=== PATIENT | male | born 1950 | race Caucasian/White ===

== ENCOUNTER 2020-02-18 19:20 | Emergency (ER) | payer MEDICARE, MEDICAID ==
[2020-02-18] MEDS ORDERED: methylPREDNISolone Sodium Succinate 125 MG/2 ML SDV IVPUSH STA (19:28)
[2020-02-18] MEDS ORDERED: Albuterol/Ipratropium 3.0-0.5 MG/3 ML Neb Soln NEB ONE (19:28)
[2020-02-18] MEDS ORDERED: Aspirin 81 MG Tab.Chew PO ONE ×2 (19:28→20:23)
--- NOTE | 2020-02-18 19:39 | EDM.PDOC ---
ED HPI GENERAL MEDICAL PROBLEM - General Chief Complaint: Chest Pain Stated Complaint: chest pain Time Seen by Provider: 02/18/20 19:25 Source of Information: Reports: Patient History Limitations: Reports: No Limitations - History of Present Illness INITIAL COMMENTS - FREE TEXT/NARRATIVE: This patient is a 69 year old male that presents to the ER. Patient reports that at 4am this morning he was awakened by being short of breath with "dancing " in his chest. Patient reports that he has had this before, he usually takes a breathing treatment and it helps. He reports he has been doing his breathing treatments at home and not helped. He reports he has been short of breath with this dancing since 4am. Patient reports that for the past few days he has also had some more congestion in nose and chest more than usual. Patient reports that his cough has been productive. He does report having nausea and vomiting x4 today. The patient is conversing in full and complete sentences. Onset: Today Onset Date: 02/18/20 Onset Time: 04:00 Duration: Constant Location: Reports: Chest Severity: Moderate Improves with: Reports: Rest Worsens with: Reports: Breathing, Movement Associated Symptoms: Reports: Chest Pain, Cough, cough w sputum, Nausea/Vomiting , Shortness of Breath, Weakness (general). Denies: Confusion, Diaphoresis, Fever/Chills, Headaches, Loss of Appetite, Malaise, Rash, Seizure, Syncope Chest Pain Score (Numeric/FACES): 9 - Related Data Allergies Allergy/AdvReac Type Severity Reaction Status Date / Time ibuprofen Allergy Cannot Verified 02/18/20 19:27 [From DayQuil Sinus Remember Pressure/Pain] pseudoephedrine HCl Allergy Cannot Verified 02/18/20 19:27 [From DayQuil Sinus Remember Pressure/Pain] Home Meds: Home Meds Albuterol/Ipratropium [DuoNeb 3.0-0.5 MG/3 ML] 1 ampule NEB QID 02/18/20 [ History] Budesonide [Pulmicort] 0.5 mg INH BID 02/18/20 [History] Cyclobenzaprine [Flexeril] 10 mg PO BEDTIME 02/18/20 [History] Gabapentin [Neurontin] 300 mg PO TID 02/18/20 [History] Roflumilast [Daliresp] 500 mcg PO BEDTIME 02/18/20 [History] ED ROS GENERAL - Review of Systems Review Of Systems: See Below Constitutional: Reports: No Symptoms, Weakness (generally), Decreased Appetite. Denies: Fever HEENT: Reports: Rhinitis, Sinus Problem Respiratory: Reports: Shortness of Breath, Pleuritic Chest Pain, Cough, Sputum Cardiovascular: Reports: Chest Pain, Dyspnea on Exertion. Denies: Edema, Lightheadedness, Palpitations, Syncope Endocrine: Reports: No Symptoms GI/Abdominal: Reports: Nausea, Vomiting. Denies: Abdominal Pain, Diarrhea : Reports: No Symptoms Musculoskeletal: Reports: No Symptoms Skin: Reports: No Symptoms Neurological: Reports: No Symptoms Psychiatric: Reports: No Symptoms Hematologic/Lymphatic: Reports: No Symptoms Immunologic: Reports: No Symptoms ED EXAM, GENERAL - Physical Exam Exam: See Below Exam Limited By: No Limitations General Appearance: Alert, WD/WN, No Apparent Distress Eye Exam: Bilateral Eye: Normal Inspection, PERRL Ears: Normal External Exam, Normal Canal, Hearing Grossly Normal, Normal TMs Ear Exam: Bilateral Ear: Auricle Normal, Canal Normal, TM normal Nose: Normal Inspection, Normal Mucosa, No Blood Throat/Mouth: Normal Inspection, Normal Lips, Normal Teeth, Normal Gums, Normal Oropharynx, Normal Voice, No Airway Compromise Head: Atraumatic, Normocephalic Neck: Normal Inspection, Supple, Non-Tender, Full Range of Motion Respiratory/Chest: No Respiratory Distress, No Accessory Muscle Use, Chest Non- Tender, Decreased Breath Sounds (moderate throughout), Rhonchi, Wheezing Cardiovascular: Normal Peripheral Pulses, Regular Rate, Rhythm, No Edema, No JVD Peripheral Pulses: 2+: Radial (L), Radial (R), Posterior Tibial (L), Posterior Tibial (R), Dorsalis Pedis (L), Dorsalis Pedis (R) GI/Abdominal: Normal Bowel Sounds, Soft, Non-Tender, No Organomegaly, No Distention, Pelvis Stable Back Exam: Normal Inspection, Full Range of Motion Extremities: Normal Inspection, Normal Range of Motion, Non-Tender, No Pedal Edema, Normal Capillary Refill Neurological: Alert, Oriented, Normal Cognition, Normal Gait, No Motor/Sensory Deficits Psychiatric: Normal Affect, Normal Mood Skin Exam: Warm, Dry, Intact, Normal Color, No Rash Lymphatic: No Adenopathy EKG INTERPRETATION EKG Date: 02/18/20 Time: 19:30 Rhythm: NSR Rate (Beats/Min): 86 ST-T: Normal Comparison: NA - No Prior EKG Course - Vital Signs Last Recorded V/S: Last Vital Signs Temp 96.3 F L 02/18/20 21:12 Pulse 103 H 02/18/20 21:12 Resp 16 02/18/20 21:12 BP 114/78 02/18/20 21:12 Pulse Ox 94 L 02/18/20 21:12 - Orders/Labs/Meds Orders: Active Orders 24 hr Category Date Time Status Oxygen Therapy, ED [RC] ASDIRECTED Care 02/18/20 21:09 Active RT Aerosol Therapy [RC] ASDIRECTED Care 02/18/20 19:29 Active Vital Signs [RC] Q1H Care 02/18/20 20:12 Active CXR [Chest 2V] [CR] Stat Exams 02/18/20 19:29 Taken CULTURE BLOOD [BC] Stat Lab 02/18/20 19:40 Received CULTURE BLOOD [BC] Stat Lab 02/18/20 19:45 Received Heparin Sodium/D5W [Heparin 25,000 Units in D5W 500 ML] Med 02/18/20 21:15 Active 25,000 units in 500 ml IV TITRATE Nitroglycerin/D5W [Nitroglycerin 25 MG/D5W 250 ML] Med 02/18/20 21:15 Active 25 mg in 250 ml IV TITRATE Blood Culture x2 Reflex Set [OM.PC] Stat Oth 02/18/20 19:36 Ordered Medication Orders Nitroglycerin/Dextrose (Nitroglycerin 25 Mg/D5w 250 Ml) 25 mg in 250 mls @ 6 mls/hr IV TITRATE MISHA; Protocol Last Admin: 02/18/20 21:25 Dose: 10 mcg/min, 6 mls/hr Heparin Sodium/Dextrose (Heparin 25,000 Units In D5w 500 Ml) 25,000 units in 500 mls @ 14.969 mls/hr IV TITRATE MISHA; Protocol Last Admin: 02/18/20 21:38 Dose: 15 units/kg/hr, 14.969 mls/hr Labs: Laboratory Tests 02/18/20 02/18/20 02/18/20 Range/Units 19:40 19:40 19:40 WBC 11.5 H (5.0-10.0) 10^3/uL RBC 4.72 (4.50-6.00) 10^6/uL Hgb 14.8 (14.0-18.0) g/dL Hct 41.6 (40.0-54.0) % MCV 88.1 (82.0-94.0) fL MCH 31.4 (27.0-32.0) pg MCHC 35.6 (33.0-38.0) g/dL RDW Coeff of Griselda 14.9 (11.0-15.0) % Plt Count 360 (150-400) 10^3/uL Neut % (Auto) 87.3 H (35-85) % Lymph % (Auto) 6.5 L (10-55) % [place] % (Auto) 5.7 (0-16) % Eos % (Auto) 0.2 (0-5) % Baso % (Auto) 0.3 (0-3) % Neut # (Auto) 10.07 H (1.80-7.00) 10^3/uL Lymph # (Auto) 0.75 L (1.00-4.80) 10^3/uL [place] # (Auto) 0.66 (0.00-0.80) 10^3/uL Eos # (Auto) 0.02 (0.00-0.45) 10^3/uL Baso # (Auto) 0.03 10^3/uL PT (9.7-12.3) SEC INR (0.92-1.18) APTT (23.2-32.3) SEC Sodium 138 (136-145) mEq/L Potassium 4.1 (3.5-5.0) mEq/L Chloride 99 (98-106) mEq/L Carbon Dioxide 26 (21-32) mmol/L BUN 19 H (7-18) mg/dL Creatinine 1.2 (0.7-1.3) mg/dL Est Cr Clr Drug Dosing 39.85 mL/min Estimated GFR (MDRD) 60 (>=60) mL/min Glucose 125 H D (75-99) mg/dL Lactic Acid 2.1 H (0.4-2.0) mmol/L Calcium 9.7 (8.4-10.1) mg/dL Total Bilirubin 0.7 (0.0-1.0) mg/dL AST 30 (15-37) U/L ALT 27 (12-78) U/L Alkaline Phosphatase 100 (46-116) U/L Lactate Dehydrogenase 156 (100-190) U/L Creatine Kinase 170 (35-232) U/L Troponin I 2.820 H* (0.00-0.06) ng/mL NT-Pro-B Natriuret Pep 1200 H (0-1000) pg/mL Total Protein 8.5 H (6.4-8.2) g/dL Albumin 3.9 (3.4-5.0) g/dL Lipase 48 L (73-393) U/L SARS-CoV-2 RNA (RT-PCR) (NEGATIVE) 02/18/20 02/18/20 Range/Units 19:45 20:12 WBC (5.0-10.0) 10^3/uL RBC (4.50-6.00) 10^6/uL Hgb (14.0-18.0) g/dL Hct (40.0-54.0) % MCV (82.0-94.0) fL MCH (27.0-32.0) pg MCHC (33.0-38.0) g/dL RDW Coeff of Griselda (11.0-15.0) % Plt Count (150-400) 10^3/uL Neut % (Auto) (35-85) % Lymph % (Auto) (10-55) % [place] % (Auto) (0-16) % Eos % (Auto) (0-5) % Baso % (Auto) (0-3) % Neut # (Auto) (1.80-7.00) 10^3/uL Lymph # (Auto) (1.00-4.80) 10^3/uL [place] # (Auto) (0.00-0.80) 10^3/uL Eos # (Auto) (0.00-0.45) 10^3/uL Baso # (Auto) 10^3/uL PT 9.4 L (9.7-12.3) SEC INR 0.93 (0.92-1.18) APTT 25.7 (23.2-32.3) SEC Sodium (136-145) mEq/L Potassium (3.5-5.0) mEq/L Chloride (98-106) mEq/L Carbon Dioxide (21-32) mmol/L BUN (7-18) mg/dL Creatinine (0.7-1.3) mg/dL Est Cr Clr Drug Dosing mL/min Estimated GFR (MDRD) (>=60) mL/min Glucose (75-99) mg/dL Lactic Acid (0.4-2.0) mmol/L Calcium (8.4-10.1) mg/dL Total Bilirubin (0.0-1.0) mg/dL AST (15-37) U/L ALT (12-78) U/L Alkaline Phosphatase (46-116) U/L Lactate Dehydrogenase (100-190) U/L Creatine Kinase (35-232) U/L Troponin I (0.00-0.06) ng/mL NT-Pro-B Natriuret Pep (0-1000) pg/mL Total Protein (6.4-8.2) g/dL Albumin (3.4-5.0) g/dL Lipase (73-393) U/L SARS-CoV-2 RNA (RT-PCR) Negative (NEGATIVE) Meds: Medications Generic Name Dose Route Start Last Admin Trade Name Freq PRN Reason Stop Dose Admin Nitroglycerin/Dextrose 25 mg in 250 mls @ 6 mls/hr 02/18/20 21:15 02/18/20 21 :25 Nitroglycerin 25 Mg/D5w 250 Ml IV 10 mcg/min TITRATE MISHA 6 mls/hr Administration Protocol 10 MCG/MIN Heparin Sodium/Dextrose 25,000 units in 500 mls @ 14.969 mls/hr 02/18/20 21: 15 02/18/20 21:38 Heparin 25,000 Units In D5w 500 Ml IV 15 units/kg/hr TITRATE MISHA 14.969 mls/hr Administration Protocol 15 UNITS/KG/HR Discontinued Medications Generic Name Dose Route Start Last Admin Trade Name Freq PRN Reason Stop Dose Admin Albuterol/Ipratropium 3 ml 02/18/20 19:28 02/18/20 19:45 Duoneb 3.0-0.5 Mg/3 Ml NEB 02/18/20 19:29 3 ml ONETIME ONE Administration Aspirin 324 mg 02/18/20 19:28 02/18/20 19:30 Aspirin PO 02/18/20 19:29 Not Given ONETIME ONE Aspirin 324 mg 02/18/20 20:23 02/18/20 20:32 Aspirin PO 02/18/20 20:24 324 mg ONETIME ONE Administration Heparin Sodium (Porcine) 3,000 units 02/18/20 21:35 02/18/20 21:37 Heparin Sodium IVPUSH 02/18/20 21:36 3,000 units .BOLUS ONE Administration Heparin Sodium (Porcine) Confirm 02/18/20 21:17 02/18/20 21:36 Heparin Sodium Administered 02/18/20 21:18 Not Given Dose 10,000 units .ROUTE .STK-MED ONE Methylprednisolone Sodium Succinate 125 mg 02/18/20 19:28 02/18/20 19:52 Solu-Medrol IVPUSH 02/18/20 19:29 125 mg NOW STA Administration Morphine Sulfate 4 mg 02/18/20 20:24 02/18/20 20:30 Morphine IVPUSH 02/18/20 20:25 4 mg NOW STA Administration Nitroglycerin 0.4 mg 02/18/20 20:46 02/18/20 21:03 Nitrostat SL 0.4 mg Q5M PRN Administration Chest Pain Ondansetron HCl 4 mg 02/18/20 20:02 02/18/20 20:09 Zofran IVPUSH 02/18/20 20:03 4 mg NOW STA Administration - Radiology Interpretation Free Text/Narrative:: CXR: marked pulmonary hyperinflation which is unchanged from previous. no lobar consolidation is seen. heart, mediastinum and vessels unremarkable. - Re-Assessments/Exams Free Text/Narrative Re-Assessment/Exam: 02/18/202016 Called from lab about patient elevated troponin, going to talk to patient about transfer. Patient requested [facility] Transfer. 02/18/20 20:29 Called [facility] for transfer. Spoke to Dr. Baltazar in ER, also with Dr. Stinson wind turbine blade repair technician. Dr. Wagner says to come to ER, give Nitro as well, and Heparin if no contraindications. Flight was paged. 02/18/20 20:50 I spoke to the patient about heparin. He reports that he has had history of bleeding in his bowels several years ago, from diverticulitis and constipation. Spoe to [facility] physician about this. She reports to give the Heparin, Nitro gtt , and no ST elevation on EKG. Discussed the risk vs benefits with the patient about medications and transfer. He has agreed to treatment and transfer. Patient pain level after morphine was 8/10. After nitro was 5/10. 02/18/20 21:20 I have attempted to call daughter x4 to talk to her about her father, but no answer. RN walked outside to see if she was outside hospital, no one there. 02/18/20 21:43 Departure - Departure Time of Disposition: 21:14 Disposition: DC/Tfer to Acute Hospital 02 Condition: Serious Clinical Impression: Acute coronary syndrome, Non-STEMI (non-ST elevated myocardial infarction) - Discharge Information *PRESCRIPTION DRUG MONITORING PROGRAM REVIEWED*: Not Applicable *COPY OF PRESCRIPTION DRUG MONITORING REPORT IN PATIENT VIVIANA: Not Applicable Referrals: PCP,Unknown [Primary Care Provider] - Forms: ED Department Discharge Sepsis Event Note (ED) - Focused Exam Vital Signs: Vital Signs Temp Pulse Pulse Resp BP BP Pulse Ox 02/18/20 21:12 96.3 F L 103 H 16 114/78 94 L 02/18/20 21:03 101 H 131/83 02/18/20 20:58 973 H 97 148/83 H 148/83 H 02/18/20 20:53 87 83 155/84 H 155/84 H 02/18/20 20:05 98.4 F 88 16 172/95 H 97 02/18/20 19:50 96.8 F L 86 16 158/99 H 99 02/18/20 19:35 97.9 F 88 16 172/95 H 97 02/18/20 19:20 96.9 F 92 18 162/91 H 98 - My Orders Last 24 Hours: My Active Orders 02/18/20 19:29 RT Aerosol Therapy [RC] ASDIRECTED CXR [Chest 2V] [CR] Stat 02/18/20 19:36 Blood Culture x2 Reflex Set [OM.PC] Stat 02/18/20 19:40 CULTURE BLOOD [BC] Stat 02/18/20 19:45 CULTURE BLOOD [BC] Stat 02/18/20 20:12 Vital Signs [RC] Q1H 02/18/20 21:09 Oxygen Therapy, ED [RC] ASDIRECTED 02/18/20 21:15 Heparin Sodium/D5W [Heparin 25,000 Units in D5W 500 ML] 25,000 units in 500 ml IV TITRATE Nitroglycerin/D5W [Nitroglycerin 25 MG/D5W 250 ML] 25 mg in 250 ml IV TITRATE - Assessment/Plan Last 24 Hours: My Active Orders 02/18/20 19:29 RT Aerosol Therapy [RC] ASDIRECTED CXR [Chest 2V] [CR] Stat 02/18/20 19:36 Blood Culture x2 Reflex Set [OM.PC] Stat 02/18/20 19:40 CULTURE BLOOD [BC] Stat 02/18/20 19:45 CULTURE BLOOD [BC] Stat 02/18/20 20:12 Vital Signs [RC] Q1H 02/18/20 21:09 Oxygen Therapy, ED [RC] ASDIRECTED 02/18/20 21:15 Heparin Sodium/D5W [Heparin 25,000 Units in D5W 500 ML] 25,000 units in 500 ml IV TITRATE Nitroglycerin/D5W [Nitroglycerin 25 MG/D5W 250 ML] 25 mg in 250 ml IV TITRATE Plan: PLEASE SEE RN NOTE FOR PFSH Patient is being transferred via air to [facility]. Patient understands and accepts risk vs benefits of transfer. Risk of transfer mvc, crash, , worsening of condition, cardiac arrest. 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 The risk of staying in [place] is , worsening of condition. The benefits of staying in [place] is close to home.
[2020-02-18] MEDS ORDERED: Ondansetron 4 MG/2 ML SDV IVPUSH STA (20:02)
[2020-02-18 20:05] LABS: PTT,PARTIAL THROMBOPLSTIN TIME 25.7 SEC (23.2-32.3)
[2020-02-18] MEDS: Nitroglycerin 0.4 MG Tab.SL SL PRN ×3 (20:53→21:03)
[2020-02-18] MEDS ORDERED: Nitroglycerin/D5W 25 MG/250 ML BOTTLE IV SCH (21:15)
[2020-02-18] MEDS ORDERED: Heparin Sodium/D5W 25,000 UNITS/500 ML BAG IV SCH (21:15)
[2020-02-18] MEDS ORDERED: Heparin Sodium 10,000 Units/1 ML MDV ONE (21:17)
[2020-02-18] MEDS ORDERED: Heparin Sodium 10,000 Units/1 ML MDV IVPUSH ONE (21:35)
== END 2020-02-18 21:55 ==
LOC: CC.ED 19:20
DX: I21.4 Non-ST elevation (NSTEMI) myocardial infarction (principal); I24.9 Acute ischemic heart disease, unspecified; Z88.6 Allergy status to analgesic agent; Z88.8 Allergy status to other drugs, medicaments and biological substances; Z79.899 Other long term (current) drug therapy
CPT/HCPCS: 36415; 71046; 80053; 82550; 83605; 83615; 83690; 83880; 84484; 85025; 85610; 85730; 87040; 93005; 94640; 96365; 96368; 96375; 99283; 99285; A9270; J1644; J2270; J2405; J2930; J3490; U0002; 93010; J7620-GY

== ENCOUNTER → 2020-03-15 | Day surgery (SDC) | payer MEDICARE, MEDICAID ==
[2020-03-15] MEDS: Benzocaine 20% Oral Spray 59.2 ML Canister MUCMEM ONE (14:12)
--- NOTE | 2020-04-11 14:01 | OR ---
DATE OF OPERATION: 03/15/2020 PREOPERATIVE DIAGNOSIS: GASTROSTOMY TUBE MALFUNCTION, DISPLACEMENT. POSTOPERATIVE DIAGNOSIS: GASTROSTOMY TUBE MALFUNCTION, DISPLACEMENT. SURGEON: Izaiah Bridges MD PROCEDURE: EGD WITH READJUSTMENT FOR PROPER PLACEMENT OF GASTROSTOMY TUBE. ANESTHESIA: Conscious sedation with IV Versed. SPECIMEN: None. INDICATIONS: This 69-year-old male has severe mesenteric ischemia and requires a gastrostomy tube placement for feedings to supplement his nutrition. He has a gastrostomy tube that is in the wrong place. CT scan shows the bulb of this within the subcutaneous tissue. DESCRIPTION OF PROCEDURE: After adequate preparation, a gastroscope was inserted into the esophagus. This was passed down into the stomach. I was able to visualize where the gastrostomy tube was and deflated the balloon. This allowed me to advance the gastrostomy tube into the stomach where the balloon was re-insufflated and pulled up to the gastric wall. This appeared to seal this adequately. No other manipulations were needed. Air was suctioned from the stomach and the scope removed. MARCIN/MARILU /[id number]
== END ==
LOC: CC.SDS 13:57
PROVIDERS: ATTEND Surgery
DX: K94.23 Gastrostomy malfunction (principal); J44.9 Chronic obstructive pulmonary disease, unspecified; F17.200 Nicotine dependence, unspecified, uncomplicated; I22.2 Subsequent non-ST elevation (NSTEMI) myocardial infarction; M54.16 Radiculopathy, lumbar region; Z79.82 Long term (current) use of aspirin; Z79.899 Other long term (current) drug therapy; Z90.49 Acquired absence of other specified parts of digestive tract
CPT/HCPCS: 36415; 84134; 85610; 85730

== ENCOUNTER 2020-03-22 20:38 | Emergency (ER) | payer MEDICARE, MEDICAID ==
--- NOTE | 2020-03-22 20:54 | EDM.PDOC ---
ED HPI GENERAL MEDICAL PROBLEM - General Chief Complaint: Abdominal Pain Stated Complaint: abd pain Time Seen by Provider: 03/22/20 20:50 Source of Information: Reports: Patient History Limitations: Reports: No Limitations - History of Present Illness INITIAL COMMENTS - FREE TEXT/NARRATIVE: Patient to the emergency department complaint generalized abdominal pain. Patient advises pain started tonight after his family gave him his nightly medications via the PEG tube. The patient advises that the PEG tube is been used without any problems and after the medication was given I did flush without any problems. The patient has nausea and feels like vomiting but has not vomited. The patient's pain is generalized in the abdomen. The patient denies any chest pain or shortness of breath denies any fever chills. Onset: Today, Sudden Duration: Hour(s): Location: Reports: Abdomen Quality: Reports: Ache Severity: Severe Improves with: Reports: None Worsens with: Reports: None Associated Symptoms: Reports: Nausea/Vomiting (Nausea no vomiting), Weakness. Denies: Chest Pain, Cough, Fever/Chills, Headaches, Shortness of Breath Treatments LITHOGRAPHIC PHOTOGRAPHER: Reports: Other Medication(s) Other Treatments LITHOGRAPHIC PHOTOGRAPHER: oxycodone Abdomen Pain Score (Numeric/FACES): 9 - Related Data Allergies Allergy/AdvReac Type Severity Reaction Status Date / Time ibuprofen Allergy Cannot Verified 03/22/20 20:38 [From DayQuil Sinus Remember Pressure/Pain] pseudoephedrine HCl Allergy Cannot Verified 03/22/20 20:38 [From DayQuil Sinus Remember Pressure/Pain] Home Meds: Home Meds Albuterol/Ipratropium [DuoNeb 3.0-0.5 MG/3 ML] 1 ampule NEB QID 02/18/20 [History] Budesonide [Pulmicort] 0.5 mg INH BID 02/18/20 [History] Cyclobenzaprine [Flexeril] 10 mg PO BEDTIME 02/18/20 [History] Aspirin 81 mg PO DAILY 03/15/20 [History] Clopidogrel Bisulfate [Plavix] 75 mg PO DAILY 03/15/20 [History] Metoprolol Tartrate 25 mg PO BID 03/15/20 [History] Nicotine [Nicotine Patch] 21 mg TD DAILY 03/15/20 [History] Nitroglycerin [Nitrostat] 0.4 mg SL ASDIRECTED PRN 03/15/20 [History] Rosuvastatin Calcium 40 mg PO DAILY 03/15/20 [History] Sacubitril/Valsartan [Entresto 97 mg-103 mg Tablet] 1 each PO BID 03/15/20 [History] Hydrocodone/Acetaminophen [Hydrocodone-Acetamin 5-325 mg] 1 tab PO Q8H PRN 03/22/20 [History] Lansoprazole [Prevacid] 30 mg PO BID 03/22/20 [History] Past Medical History HEENT History: Reports: Cataract Cardiovascular History: Reports: High Cholesterol, SOB on Exertion, Syncope Respiratory History: Reports: COPD, SOB Gastrointestinal History: Reports: Diverticulosis Other Gastrointestinal History: has abdominal surgery with no surgical intervention yet Musculoskeletal History: Reports: Back Pain, Chronic, Fracture, Osteoarthritis, Osteoporosis Neurological History: Reports: Migraines Oncologic (Cancer) History: Reports: Other (See Below) Other Oncologic History: testicular cancer with right testicle removed - Past Surgical History HEENT Surgical History: Reports: Cataract Surgery Cardiovascular Surgical History: Reports: None Respiratory Surgical History: Reports: None GI Surgical History: Reports: Appendectomy, Cholecystectomy, Other (See Below) Other GI Surgeries/Procedures: patient has feeding tube and drain placed Musculoskeletal Surgical History: Reports: Other (See Below) Other Musculoskeletal Surgeries/Procedures:: back surgery; hearn rods in his back Social & Family History - Tobacco Use Smoking Status *Q: Former Smoker Used Tobacco, but Quit: Yes Month/Year Tobacco Last Used: february 2020 - Caffeine Use Caffeine Use: Reports: Coffee - Recreational Drug Use Recreational Drug Use: Yes Recreational Drug Type: Reports: Oxycodone Recreational Drug Use Frequency: Daily ED ROS GENERAL - Review of Systems Review Of Systems: See Below Constitutional: Reports: Weakness. Denies: Fever, Chills HEENT: Reports: No Symptoms Respiratory: Reports: No Symptoms. Denies: Shortness of Breath, Wheezing, Cough Cardiovascular: Reports: No Symptoms. Denies: Chest Pain GI/Abdominal: Reports: Abdominal Pain, Nausea. Denies: Black Stool, Bloody Stool, Distension, Vomiting : Reports: No Symptoms Musculoskeletal: Reports: No Symptoms. Denies: Neck Pain, Back Pain Skin: Reports: No Symptoms Neurological: Reports: No Symptoms. Denies: Headache Psychiatric: Reports: No Symptoms ED EXAM, GI/ABD - Physical Exam Exam: See Below Exam Limited By: No Limitations General Appearance: Alert, WD/WN, Thin Ears: Normal External Exam Nose: Normal Inspection Throat/Mouth: Normal Inspection, Normal Lips, Normal Voice, No Airway Compromise Head: Atraumatic, Normocephalic Neck: Normal Inspection, Supple, Non-Tender, Full Range of Motion Respiratory/Chest: No Respiratory Distress, Lungs Clear, Normal Breath Sounds, Chest Non-Tender Cardiovascular: Normal Peripheral Pulses, Regular Rate, Rhythm GI/Abdominal Exam: Soft, No Distention, No Abnormal Bruit, Tender (Generalized tenderness with palpation). No: Rigid Back Exam: Normal Inspection, Full Range of Motion Extremities: Normal Inspection, Normal Range of Motion, Non-Tender, Normal Capillary Refill Neurological: Alert, Oriented, Normal Cognition, No Motor/Sensory Deficits Psychiatric: Normal Affect, Normal Mood Skin Exam: Warm, Dry, Intact, No Rash EKG INTERPRETATION EKG Date: 03/22/20 Time: 21:08 Rhythm: NSR P-Wave: Present QRS: Normal ST-T: Normal QT: Normal EKG Interpretation Comments: Twelve-lead EKG shows an underlying sinus rhythm with a ventricular rate of 81 there is some nonspecific ST changes however there is no injury or ischemia noted. R wave progression is delayed. Course - Vital Signs Text/Narrative:: 2111 It appears as if the patient had a recent non-STEMI and was sent to [place] and subsequently to [place]. In addition to this on March 15 the patient had an EGD for PEG placement/repositioning. See the operating physician's notes for details. In the report there was concern for possible leak which can possibly contribute to the patient's current symptoms. Lab and x-ray are present in the emergency department this time. Twelve-lead EKG is been completed and shows an underlying sinus rhythm with ventricular rate of 81 with no injury or ischemia. [address] the abdomen pelvis has been completed and is pending reading by the radiologist. The patient's white count is 14,000 his hemoglobin is 9.7 his previous was 11.7. Platelets are elevated which is similar to what it has been. Overall chemistries are essentially negative see the actual report for details. Amylase lipase are normal, lactic acid is normal. Urinalysis is negative. The patient was given morphine 4 mg IV which did little relief for him and was subsequently given Dilaudid 0.5 mg IV which has relieved his pain at this point. Patient was also given 4 mg Zofran for nausea which is also relieved. 2307 the radiologist from [place] in [place] called and advised that the CT is abnormal he advised that there is a thrombus that is unchanged in the aorta from before and he also advised that he does see findings that is suggestive of possible some bowel ischemia. He advised that this is not a very clear picture and the patient is going to need to be monitored closely. This was a verbal report and the written report is still pending. See the written report for details. The patient will be transferred to [facility] in [place] for further evaluation and treatment. I have called and spoke to the campaign coordinator Aury she will get the hospitalist for me. [address] Randle the hospitalist and after discussing the patient's condition as well as the vital signs, lab work and CT as read by the CT report, she will accept the patient. EMS has been called to transport the patient, see the nursing notes for complete details. The patient was advised the need to transfer and agrees with the transfer as well as the patient's family Susan. The patient was also given meropenem 1 g IV prophylactically as the radiologist suggests that this can be an infectious process as well. Last Recorded V/S: Last Vital Signs Temp 36.7 C 03/22/20 23:20 Pulse 90 03/22/20 23:20 Resp 18 03/22/20 23:20 BP 157/76 H 03/22/20 23:20 Pulse Ox 97 03/22/20 23:20 - Orders/Labs/Meds Orders: Active Orders 24 hr Category Date Time Status Urinary Catheter Assessment [RC] ASDIRECTED Care 03/22/20 21:42 Active Urinary Catheter Insertion [Insert Urinary Catheter] [ Care 03/22/20 21:30 Ordered OM.PC] Q24H Abdomen Pelvis w Cont [CT] Stat Exams 03/22/20 20:54 Taken Sodium Chloride 0.9% [Normal Saline] 1,000 ml Med 03/22/20 21:00 Active IV ASDIRECTED Medication Orders Sodium Chloride (Normal Saline) 1,000 mls @ 100 mls/hr IV ASDIRECTED MISHA Last Admin: 03/22/20 21:04 Dose: 100 mls/hr Documented by: YANN Labs: Laboratory Tests 03/22/20 03/22/20 03/22/20 Range/Units 21:15 21:15 21:15 WBC 13.9 H (5.0-10.0) 10^3/uL RBC 3.14 L (4.50-6.00) 10^6/uL Hgb 9.7 L (14.0-18.0) g/dL Hct 29.0 L (40.0-54.0) % MCV 92.4 (82.0-94.0) fL MCH 30.9 (27.0-32.0) pg MCHC 33.4 (33.0-38.0) g/dL RDW Coeff of Griselda 16.3 H (11.0-15.0) % Plt Count 727 H (150-400) 10^3/uL Neut % (Auto) 77.6 (35-85) % Lymph % (Auto) 10.9 (10-55) % [place] % (Auto) 7.3 (0-16) % Eos % (Auto) 3.7 (0-5) % Baso % (Auto) 0.5 (0-3) % Neut # (Auto) 10.79 H (1.80-7.00) 10^3/uL Lymph # (Auto) 1.51 (1.00-4.80) 10^3/uL [place] # (Auto) 1.02 H (0.00-0.80) 10^3/uL Eos # (Auto) 0.52 H (0.00-0.45) 10^3/uL Baso # (Auto) 0.07 10^3/uL Sodium 141 (136-145) mEq/L Potassium 4.4 (3.5-5.0) mEq/L Chloride 101 (98-106) mEq/L Carbon Dioxide 24 (21-32) mmol/L BUN 41 H D (7-18) mg/dL Creatinine 1.3 (0.7-1.3) mg/dL Est Cr Clr Drug Dosing 34.44 mL/min Estimated GFR (MDRD) 54 L (>=60) mL/min Glucose 124 H (75-99) mg/dL Lactic Acid 1.2 (0.4-2.0) mmol/L Calcium 9.1 (8.4-10.1) mg/dL Total Bilirubin 0.3 (0.0-1.0) mg/dL AST 40 H (15-37) U/L ALT 52 (12-78) U/L Alkaline Phosphatase 116 (46-116) U/L C-Reactive Protein 0.4 (0.2-0.8) mg/dL Total Protein 7.9 (6.4-8.2) g/dL Albumin 2.9 L (3.4-5.0) g/dL Amylase 74 (25-115) U/L Lipase 98 (73-393) U/L Urine Color (YELLOW) Urine Appearance (CLEAR) Urine pH (4.5-8.0) Ur Specific [place] (1.003-1.020) Urine Protein (NEGATIVE) mg/dL Urine Glucose (UA) (NEGATIVE) mg/dL Urine Ketones (NEGATIVE) mg/dL Urine Occult Blood (NEGATIVE) Urine Nitrite (NEGATIVE) Urine Bilirubin (NEGATIVE) Urine Urobilinogen (0.2-1.0) EU/dL Ur Leukocyte Esterase (NEGATIVE) Urine RBC (0-5) /HPF Urine WBC (0-5) /HPF Ur Epithelial Cells (NOT SEEN) /HPF Amorphous Sediment (NOT SEEN) /HPF 03/22/20 Range/Units 21:25 WBC (5.0-10.0) 10^3/uL RBC (4.50-6.00) 10^6/uL Hgb (14.0-18.0) g/dL Hct (40.0-54.0) % MCV (82.0-94.0) fL MCH (27.0-32.0) pg MCHC (33.0-38.0) g/dL RDW Coeff of Griselda (11.0-15.0) % Plt Count (150-400) 10^3/uL Neut % (Auto) (35-85) % Lymph % (Auto) (10-55) % [place] % (Auto) (0-16) % Eos % (Auto) (0-5) % Baso % (Auto) (0-3) % Neut # (Auto) (1.80-7.00) 10^3/uL Lymph # (Auto) (1.00-4.80) 10^3/uL [place] # (Auto) (0.00-0.80) 10^3/uL Eos # (Auto) (0.00-0.45) 10^3/uL Baso # (Auto) 10^3/uL Sodium (136-145) mEq/L Potassium (3.5-5.0) mEq/L Chloride (98-106) mEq/L Carbon Dioxide (21-32) mmol/L BUN (7-18) mg/dL Creatinine (0.7-1.3) mg/dL Est Cr Clr Drug Dosing mL/min Estimated GFR (MDRD) (>=60) mL/min Glucose (75-99) mg/dL Lactic Acid (0.4-2.0) mmol/L Calcium (8.4-10.1) mg/dL Total Bilirubin (0.0-1.0) mg/dL AST (15-37) U/L ALT (12-78) U/L Alkaline Phosphatase (46-116) U/L C-Reactive Protein (0.2-0.8) mg/dL Total Protein (6.4-8.2) g/dL Albumin (3.4-5.0) g/dL Amylase (25-115) U/L Lipase (73-393) U/L Urine Color Susan (YELLOW) Urine Appearance Cloudy (CLEAR) Urine pH 5.5 (4.5-8.0) Ur Specific [place] >= 1.030 H (1.003-1.020) Urine Protein 30 H (NEGATIVE) mg/dL Urine Glucose (UA) Negative (NEGATIVE) mg/dL Urine Ketones Negative (NEGATIVE) mg/dL Urine Occult Blood Trace-intact H (NEGATIVE) Urine Nitrite Negative (NEGATIVE) Urine Bilirubin Negative (NEGATIVE) Urine Urobilinogen 0.2 (0.2-1.0) EU/dL Ur Leukocyte Esterase Negative (NEGATIVE) Urine RBC 10-20 H (0-5) /HPF Urine WBC 0-5 (0-5) /HPF Ur Epithelial Cells Moderate H (NOT SEEN) /HPF Amorphous Sediment Many H (NOT SEEN) /HPF Meds: Medications Generic Name Dose Route Start Last Admin Trade Name Freq PRN Reason Stop Dose Admin Sodium Chloride 1,000 mls @ 100 mls/hr 03/22/20 21:00 03/22/20 21:04 Normal Saline IV 100 mls/hr ASDIRECTED MISHA Administration Discontinued Medications Generic Name Dose Route Start Last Admin Trade Name Freq PRN Reason Stop Dose Admin Hydromorphone HCl 0.5 mg 03/22/20 21:24 03/22/20 21:29 Dilaudid IVPUSH 03/22/20 21:25 0.5 mg ONETIME ONE Administration Iopamidol 100 ml 03/22/20 21:16 03/22/20 22:01 Isovue-370 (76%) IVPUSH 03/22/20 21:17 100 ml ONETIME ONE Administration Meropenem 1 gm 03/22/20 23:18 03/22/20 23:27 Merrem IVPUSH 03/22/20 23:19 1 gm ONETIME ONE Administration Morphine Sulfate 4 mg 03/22/20 20:56 03/22/20 21:04 Morphine IVPUSH 03/22/20 20:57 4 mg ONETIME ONE Administration Ondansetron HCl 4 mg 03/22/20 20:57 03/22/20 21:04 Zofran IVPUSH 03/22/20 20:58 4 mg ONETIME ONE Administration Departure - Departure Time of Disposition: 23:31 Disposition: DC/Tfer to Acute Hospital 02 Condition: Good Clinical Impression: Abdominal pain, Leukocytosis - Discharge Information *PRESCRIPTION DRUG MONITORING PROGRAM REVIEWED*: Not Applicable *COPY OF PRESCRIPTION DRUG MONITORING REPORT IN PATIENT VIVIANA: Not Applicable Forms: ED Department Discharge Sepsis Event Note (ED) - Evaluation Sepsis Screening Result: No Definite Risk - Focused Exam Vital Signs: Vital Signs Temp Pulse Resp BP BP Pulse Ox 03/22/20 23:20 36.7 C 90 18 157/76 H 97 03/22/20 21:37 36.9 C 85 18 156/78 H 96 03/22/20 20:38 36.3 C 86 16 123/91 H 98 - Problem List & Annotations (1) Abdominal pain SNOMED Code(s): 97955939 Code(s): R10.9 - UNSPECIFIED ABDOMINAL PAIN Status: Acute Priority: High Current Visit: Yes Qualifiers: Abdominal location: generalized Qualified Code(s): R10.84 - Generalized abdominal pain (2) Leukocytosis SNOMED Code(s): 781145589, 908261670 Code(s): D72.829 - ELEVATED WHITE BLOOD CELL COUNT, UNSPECIFIED Status: Acute Priority: High Current Visit: Yes Qualifiers: Leukocytosis type: unspecified Qualified Code(s): D72.829 - Elevated white blood cell count, unspecified - Problem List Review Problem List Initiated/Reviewed/Updated: Yes - My Orders Last 24 Hours: My Active Orders 03/22/20 20:54 Abdomen Pelvis w Cont [CT] Stat 03/22/20 21:00 Sodium Chloride 0.9% [Normal Saline] 1,000 ml IV ASDIRECTED 03/22/20 21:30 Urinary Catheter Insertion [Insert Urinary Catheter] [OM.PC] Q24H 03/22/20 21:42 Urinary Catheter Assessment [RC] ASDIRECTED - Assessment/Plan Last 24 Hours: My Active Orders 03/22/20 20:54 Abdomen Pelvis w Cont [CT] Stat 03/22/20 21:00 Sodium Chloride 0.9% [Normal Saline] 1,000 ml IV ASDIRECTED 03/22/20 21:30 Urinary Catheter Insertion [Insert Urinary Catheter] [OM.PC] Q24H 03/22/20 21:42 Urinary Catheter Assessment [RC] ASDIRECTED Plan: The patient's past medical history, past surgical history, past social history and past family medical history was reviewed see the nursing notes for complete details. The patient is being transferred to [facility] for further evaluation and treatment of his abdominal pain. The patient's white blood cell count is elevated, the patient CT of the abdomen pelvis is abnormal see the radiology report for details. The risk and benefits was explained to the patient and his family member and they agree to be transferred. The benefits are evaluation and treatment by surgeon not available at [place], the risk are worsening condition, motor vehicle accident, and .
[2020-03-22] MEDS ORDERED: Morphine 10 MG/ML SDV IVPUSH ONE (20:56)
[2020-03-22] MEDS ORDERED: Ondansetron 4 MG/2 ML SDV IVPUSH ONE (20:57)
[2020-03-22] MEDS ORDERED: Sodium Chloride 0.9% 1,000 ML IV SCH (21:00)
[2020-03-22] MEDS ORDERED: Iopamidol 755 Mg/ML 100 ML Bottle IVPUSH ONE (21:16)
[2020-03-22] MEDS ORDERED: HYDROmorphone 1 MG/ML Syringe IVPUSH ONE (21:24)
[2020-03-22] MEDS ORDERED: Meropenem 1 GM SDV IVPUSH ONE (23:18)
[2020-03-23] MEDS ORDERED: HYDROmorphone 1 MG/ML Syringe IVPUSH STA (00:07)
== END 2020-03-23 01:04 ==
LOC: CC.ED 20:38
DX: D72.829 Elevated white blood cell count, unspecified (principal); E78.00 Pure hypercholesterolemia, unspecified; J44.9 Chronic obstructive pulmonary disease, unspecified; M19.90 Unspecified osteoarthritis, unspecified site; Z79.82 Long term (current) use of aspirin; Z79.899 Other long term (current) drug therapy; Z88.6 Allergy status to analgesic agent; Z88.8 Allergy status to other drugs, medicaments and biological substances; Z79.02 Long term (current) use of antithrombotics/antiplatelets; Z87.891 Personal history of nicotine dependence; Z20.828 Contact with and (suspected) exposure to other viral communicable diseases
CPT/HCPCS: 36415; 51701; 74177; 80053; 81001; 82150; 83605; 83690; 85025; 86140; 93005; 96361; 96374; 96375; 96376; 99284; 99285-25; J1170; J2185; J2270; J2405; J7030; Q9967; U0002

== ENCOUNTER 2020-04-04 06:05 | Emergency (ER) | payer MEDICARE, MEDICAID ==
[2020-04-04] MEDS ORDERED: fentaNYL 100 MCG/2 ML SDV IVPUSH ONE (06:56)
--- NOTE | 2020-04-04 06:59 | EDM.PDOC ---
ED HPI GENERAL MEDICAL PROBLEM - General Chief Complaint: Abdominal Pain Stated Complaint: abdominal pain Time Seen by Provider: 04/04/20 06:50 Source of Information: Reports: Patient History Limitations: Reports: No Limitations - History of Present Illness INITIAL COMMENTS - FREE TEXT/NARRATIVE: Patient presents to ER with complaints of increased abdominal pain. Started last evening and has progressively gotten worse. Has had multiple issues with this related to his feeding tube but relates this feels different this am. Has been having his usual diarrhea stools. Was transferred on March 22 to [place], states they "moved the tube" and he has been doing better. 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 Has been staying here in [place] with his daughter. No fevers. No nausea or vomiting. Is passing gas. Does typically take pain meds every 8 hours, did not seem to help. States pain is always at best a 7/10, now is a 10/10. Onset: Today, Gradual Duration: Hour(s):, Getting Worse Location: Reports: Abdomen Quality: Reports: Sharp Severity: Severe Improves with: Reports: None Associated Symptoms: Reports: Loss of Appetite, Malaise. Denies: Confusion, Chest Pain, Cough, Diaphoresis, Fever/Chills, Headaches, Nausea/Vomiting, Shortness of Breath, Syncope, Weakness Middle Abdomen Pain Score (Numeric/FACES): 10 - Related Data Allergies Allergy/AdvReac Type Severity Reaction Status Date / Time ibuprofen Allergy Cannot Verified 04/04/20 06:54 [From DayQuil Sinus Remember Pressure/Pain] pseudoephedrine HCl Allergy Cannot Verified 04/04/20 06:54 [From DayQuil Sinus Remember Pressure/Pain] Home Meds: Home Meds Albuterol/Ipratropium [DuoNeb 3.0-0.5 MG/3 ML] 1 ampule NEB QID 02/18/20 [History] Budesonide [Pulmicort] 0.5 mg INH BID 02/18/20 [History] Cyclobenzaprine [Flexeril] 10 mg PO BEDTIME 02/18/20 [History] Aspirin 81 mg PO DAILY 03/15/20 [History] Clopidogrel Bisulfate [Plavix] 75 mg PO DAILY 03/15/20 [History] Metoprolol Tartrate 25 mg PO BID 03/15/20 [History] Nicotine [Nicotine Patch] 21 mg TD DAILY 03/15/20 [History] Nitroglycerin [Nitrostat] 0.4 mg SL ASDIRECTED PRN 03/15/20 [History] Rosuvastatin Calcium 40 mg PO DAILY 03/15/20 [History] Sacubitril/Valsartan [Entresto 97 mg-103 mg Tablet] 1 each PO BID 03/15/20 [History] Hydrocodone/Acetaminophen [Hydrocodone-Acetamin 5-325 mg] 1 tab PO Q8H PRN 03/22/20 [History] Lansoprazole [Prevacid] 30 mg PO BID 03/22/20 [History] Past Medical History HEENT History: Reports: Cataract Cardiovascular History: Reports: High Cholesterol, SOB on Exertion, Syncope Respiratory History: Reports: COPD, SOB Gastrointestinal History: Reports: Diverticulosis Other Gastrointestinal History: has abdominal surgery with no surgical intervention yet Musculoskeletal History: Reports: Back Pain, Chronic, Fracture, Osteoarthritis, Osteoporosis Neurological History: Reports: Migraines Oncologic (Cancer) History: Reports: Other (See Below) Other Oncologic History: testicular cancer with right testicle removed - Past Surgical History HEENT Surgical History: Reports: Cataract Surgery Cardiovascular Surgical History: Reports: None Respiratory Surgical History: Reports: None GI Surgical History: Reports: Appendectomy, Cholecystectomy, Other (See Below) Other GI Surgeries/Procedures: patient has feeding tube and drain placed Musculoskeletal Surgical History: Reports: Other (See Below) Other Musculoskeletal Surgeries/Procedures:: back surgery; hearn rods in his back Social & Family History - Tobacco Use Smoking Status *Q: Former Smoker Used Tobacco, but Quit: Yes Month/Year Tobacco Last Used: quit "6 weeks ago" - Caffeine Use Caffeine Use: Reports: Coffee ED ROS GENERAL - Review of Systems Review Of Systems: See Below Constitutional: Reports: Malaise, Weakness, Fatigue, Decreased Appetite. Denies: Fever, Chills HEENT: Reports: No Symptoms Respiratory: Reports: Cough (mild cough chronically related to smoking history). Denies: Shortness of Breath Cardiovascular: Denies: Chest Pain, Edema, Lightheadedness Endocrine: Reports: Fatigue GI/Abdominal: Reports: Abdominal Pain, Diarrhea. Denies: Black Stool, Bloody Stool, Vomiting : Reports: No Symptoms Musculoskeletal: Reports: Back Pain Skin: Reports: No Symptoms Neurological: Reports: Weakness ED EXAM, GI/ABD - Physical Exam Exam: See Below Exam Limited By: No Limitations General Appearance: Alert, WD/WN, Moderate Distress Ears: Normal External Exam, Normal TMs Nose: Normal Inspection, Normal Mucosa, No Blood Throat/Mouth: Normal Inspection, Normal Oropharynx Head: Normocephalic Neck: Normal Inspection, Supple, Non-Tender Respiratory/Chest: No Respiratory Distress, Lungs Clear, Normal Breath Sounds Cardiovascular: Regular Rate, Rhythm, No Edema GI/Abdominal Exam: Normal Bowel Sounds, Soft, No Distention, Guarding, Tender (tender to area surrounding feeding tube and small hernia proximal to it, easily reducible), Hernia Extremities: Normal Inspection, No Pedal Edema Neurological: Alert, Oriented Skin Exam: Warm, Dry Course - Vital Signs Last Recorded V/S: Last Vital Signs Temp 97.5 F 04/04/20 06:07 Pulse 75 04/04/20 06:07 Resp 18 04/04/20 06:07 BP 141/76 H 04/04/20 06:07 Pulse Ox 99 04/04/20 06:07 - Orders/Labs/Meds Orders: Active Orders 24 hr Category Date Time Status Abdomen 2V AP Flat Upright [CR] Stat Exams 04/04/20 06:25 Taken Abdomen Pelvis w Cont [CT] Stat Exams 04/04/20 07:46 Taken Labs: Laboratory Tests 04/04/20 04/04/20 04/04/20 Range/Units 06:25 06:25 07:34 WBC 19.3 H (5.0-10.0) 10^3/uL RBC 3.87 L (4.50-6.00) 10^6/uL Hgb 12.0 L (14.0-18.0) g/dL Hct 35.8 L (40.0-54.0) % MCV 92.5 (82.0-94.0) fL MCH 31.0 (27.0-32.0) pg MCHC 33.5 (33.0-38.0) g/dL RDW Coeff of Griselda 15.9 H (11.0-15.0) % Plt Count 535 H (150-400) 10^3/uL Neut % (Auto) 83.0 (35-85) % Lymph % (Auto) 6.9 L (10-55) % [place] % (Auto) 6.6 (0-16) % Eos % (Auto) 3.3 (0-5) % Baso % (Auto) 0.2 (0-3) % Neut # (Auto) 16.05 H (1.80-7.00) 10^3/uL Lymph # (Auto) 1.34 (1.00-4.80) 10^3/uL [place] # (Auto) 1.27 H (0.00-0.80) 10^3/uL Eos # (Auto) 0.64 H (0.00-0.45) 10^3/uL Baso # (Auto) 0.03 10^3/uL Sodium 136 (136-145) mEq/L Potassium 4.4 (3.5-5.0) mEq/L Chloride 101 (98-106) mEq/L Carbon Dioxide 26 (21-32) mmol/L BUN 28 H (7-18) mg/dL Creatinine 1.1 (0.7-1.3) mg/dL Est Cr Clr Drug Dosing 40.70 mL/min Estimated GFR (MDRD) > 60 (>=60) mL/min Glucose 121 H (75-99) mg/dL Calcium 9.6 (8.4-10.1) mg/dL Total Bilirubin 0.2 (0.0-1.0) mg/dL AST 30 (15-37) U/L ALT 31 (12-78) U/L Alkaline Phosphatase 135 H (46-116) U/L C-Reactive Protein 3.3 H (0.2-0.8) mg/dL Total Protein 8.6 H (6.4-8.2) g/dL Albumin 3.1 L (3.4-5.0) g/dL Amylase 52 (25-115) U/L Lipase 44 L (73-393) U/L Meds: Medications Discontinued Medications Generic Name Dose Route Start Last Admin Trade Name Hernandoq PRN Reason Stop Dose Admin Fentanyl 25 mcg 04/04/20 06:56 04/04/20 07:10 Sublimaze IVPUSH 04/04/20 06:57 25 mcg ONETIME ONE Administration Hydromorphone HCl 0.5 mg 04/04/20 07:25 04/04/20 07:29 Dilaudid IVPUSH 04/04/20 07:26 0.5 mg ONETIME ONE Administration Hydromorphone HCl 0.5 mg 04/04/20 07:51 04/04/20 07:59 Dilaudid IVPUSH 04/04/20 07:52 0.5 mg ONETIME ONE Administration Sodium Chloride 1,000 mls @ 100 mls/hr 04/04/20 07:00 04/04/20 07:15 Normal Saline IV 100 mls/hr ASDIRECTED MISHA Administration Iopamidol 100 ml 04/04/20 07:54 04/04/20 08:19 Isovue-370 (76%) IVPUSH 04/04/20 07:55 100 ml ONETIME ONE Administration Ondansetron HCl 4 mg 04/04/20 07:38 04/04/20 07:41 Zofran IVPUSH 4 mg Q6H PRN Administration Nausea - Re-Assessments/Exams Free Text/Narrative Re-Assessment/Exam: 04/04/20 0800 Labs noted. Does have elevated WBC at 19.8. CRP 3.3, other labs essentially negative. Flat and upright of the abdomen shows large amount of gas present, no obvious obstruction. Due to elevated wBC, will proceed with CT scan with IV contrast only. Patient continues to moan and thrash around with pain. Dilaudid given. 1030-Patient has been given second dose of Dilaudid this am. Now sleeping. Awoke for further exam as CT report is negative. States pain is gone, now rates at a 7 which he states is chronic for him. 1200-Patient continues to do well. Given option for transfer for further evaluation due to complex history, admission here or return home with usual pain meds and feeding tube. Opted to return home and will return if develops a change in pain or other symptoms. Departure - Departure Time of Disposition: 12:07 Disposition: Home, Self-Care 01 Condition: Fair Clinical Impression: Abdominal pain Qualifiers: Abdominal location: generalized Qualified Code(s): R10.84 - Generalized abdominal pain - Discharge Information *PRESCRIPTION DRUG MONITORING PROGRAM REVIEWED*: No *COPY OF PRESCRIPTION DRUG MONITORING REPORT IN PATIENT VIVIANA: No Instructions: Abdominal Pain, Adult, [id number] Referrals: PCP,None [Primary Care Provider] - Forms: ED Department Discharge Care Plan Goals: 1. Rest 2. Dietary intake as tolerated 3. Pain meds as at home 4. Return if pain worsens and not controlled with usual meds or call physician in [facility]. Sepsis Event Note (ED) - Evaluation Sepsis Screening Result: No Definite Risk - My Orders Last 24 Hours: My Active Orders 04/04/20 06:25 Abdomen 2V AP Flat Upright [CR] Stat 04/04/20 07:46 Abdomen Pelvis w Cont [CT] Stat - Assessment/Plan Last 24 Hours: My Active Orders 04/04/20 06:25 Abdomen 2V AP Flat Upright [CR] Stat 04/04/20 07:46 Abdomen Pelvis w Cont [CT] Stat
[2020-04-04] MEDS ORDERED: Sodium Chloride 0.9% 1,000 ML IV SCH (07:00)
[2020-04-04 07:24] LABS: CHLORIDE,CL 101 mEq/L (98-106); SODIUM,NA 136 mEq/L (136-145)
[2020-04-04] MEDS ORDERED: HYDROmorphone 1 MG/ML Syringe IVPUSH ONE ×2 (07:25→07:51)
[2020-04-04] MEDS ORDERED: Ondansetron 4 MG/2 ML SDV IVPUSH PRN (07:38)
[2020-04-04] MEDS ORDERED: Iopamidol 755 Mg/ML 100 ML Bottle IVPUSH ONE (07:54)
== END 2020-04-04 12:24 | disposition home or self-care (01) ==
LOC: CC.ED 06:05
DX: R10.84 Generalized abdominal pain (principal); E78.00 Pure hypercholesterolemia, unspecified; J44.9 Chronic obstructive pulmonary disease, unspecified; Z87.891 Personal history of nicotine dependence; M19.90 Unspecified osteoarthritis, unspecified site; Z88.6 Allergy status to analgesic agent; Z88.8 Allergy status to other drugs, medicaments and biological substances; Z79.82 Long term (current) use of aspirin; Z79.02 Long term (current) use of antithrombotics/antiplatelets; Z79.899 Other long term (current) drug therapy
CPT/HCPCS: 36415; 74019; 74177; 80053; 82150; 83690; 85025; 86140; 96361; 96374; 96375; 96376; 99284; 99284-25; J1170; J2405; J3010; J7030; Q9967

== ENCOUNTER 2020-04-05 10:50 | Observation (INO) | payer MEDICARE, MEDICAID ==
[2020-04-05] MEDS ORDERED: HYDROmorphone 1 MG/ML Syringe IVPUSH ONE ×2 (11:24→11:47)
--- NOTE | 2020-04-05 11:55 | EDM.PDOC ---
ED HPI GENERAL MEDICAL PROBLEM - General Chief Complaint: General Stated Complaint: STOMACH CRAMPS/VOMITTING Time Seen by Provider: 04/05/20 11:45 Source of Information: Reports: Patient History Limitations: Reports: No Limitations - History of Present Illness INITIAL COMMENTS - FREE TEXT/NARRATIVE: Mark is a 69 yo male with multiple chronic conditions who presents to the ED with c/o severe abdominal pain/cramping. He has GJ tube in place due to malnutrition. Was seen in ED yesterday with same complaint. Had labs and CT abdomen pelvis completed. Showed normal placement of GJ tube. Lab work was significant for leukocytosis, which he has been dealing with all month. He was recommended to be transferred vs. admitted but patient wished to go home yesterday. He was also recently admitted to [facility] for same complaint, although that time GJ tube was malpositioned and had to have this repositioned. He had leukocytosis at that time as well, however patient wished to be discharged home. He reports that for some time after discharge from ED yesterday he was feeling at baseline. Reports this morning severe pain started again. Reports he has been passing gas. Current feeding tube rate is 52 mLs/hr. He has slowly been trying to increase this. Has drainage bag intact upon presentation to ED. He denies any fevers, chills, chest pain, shortness of breath. Has been nauseated. Has vomited a few times this morning. Reports no oral intake for the last few days. Does have his usual diarrhea. Onset: Today, Sudden Duration: Constant Location: Reports: Abdomen Quality: Reports: Sharp, Other (Cramping) Severity: Severe Associated Symptoms: Reports: Loss of Appetite, Nausea/Vomiting. Denies: Confusion, Chest Pain, Cough, cough w sputum, Fever/Chills, Headaches, Malaise, Rash, Seizure, Shortness of Breath, Syncope, Weakness Abdominal Pain Score (Numeric/FACES): 15 - Related Data Allergies Allergy/AdvReac Type Severity Reaction Status Date / Time ibuprofen Allergy Cannot Verified 04/05/20 11:01 [From DayQuil Sinus Remember Pressure/Pain] pseudoephedrine HCl Allergy Cannot Verified 04/05/20 11:01 [From DayQuil Sinus Remember Pressure/Pain] Home Meds: Home Meds Albuterol/Ipratropium [DuoNeb 3.0-0.5 MG/3 ML] 1 ampule NEB QID 02/18/20 [History] Budesonide [Pulmicort] 0.5 mg INH BID 02/18/20 [History] Cyclobenzaprine [Flexeril] 10 mg PO BEDTIME 02/18/20 [History] Aspirin 81 mg PO DAILY 03/15/20 [History] Clopidogrel Bisulfate [Plavix] 75 mg PO DAILY 03/15/20 [History] Metoprolol Tartrate 25 mg PO BID 03/15/20 [History] Nicotine [Nicotine Patch] 21 mg TD DAILY 03/15/20 [History] Nitroglycerin [Nitrostat] 0.4 mg SL ASDIRECTED PRN 03/15/20 [History] Rosuvastatin Calcium 40 mg PO DAILY 03/15/20 [History] Sacubitril/Valsartan [Entresto 97 mg-103 mg Tablet] 1 each PO BID 03/15/20 [History] Hydrocodone/Acetaminophen [Hydrocodone-Acetamin 5-325 mg] 1 tab PO Q8H PRN 03/22/20 [History] Lansoprazole [Prevacid] 30 mg PO BID 03/22/20 [History] Past Medical History HEENT History: Reports: Cataract Cardiovascular History: Reports: High Cholesterol, SOB on Exertion, Syncope Respiratory History: Reports: COPD, SOB Gastrointestinal History: Reports: Diverticulosis Other Gastrointestinal History: has abdominal surgery with no surgical intervention yet Musculoskeletal History: Reports: Back Pain, Chronic, Fracture, Osteoarthritis, Osteoporosis Neurological History: Reports: Migraines Oncologic (Cancer) History: Reports: Other (See Below) Other Oncologic History: testicular cancer with right testicle removed - Past Surgical History HEENT Surgical History: Reports: Cataract Surgery Cardiovascular Surgical History: Reports: None Respiratory Surgical History: Reports: None GI Surgical History: Reports: Appendectomy, Cholecystectomy, Other (See Below) Other GI Surgeries/Procedures: patient has feeding tube and drain placed Musculoskeletal Surgical History: Reports: Other (See Below) Other Musculoskeletal Surgeries/Procedures:: back surgery; hearn rods in his back Social & Family History - Family History Family Medical History: Noncontributory - Tobacco Use Smoking Status *Q: Former Smoker Used Tobacco, but Quit: Yes Month/Year Tobacco Last Used: 2014 - Caffeine Use Caffeine Use: Reports: Coffee ED ROS GENERAL - Review of Systems Review Of Systems: Comprehensive ROS is negative, except as noted in HPI. ED EXAM, GENERAL - Physical Exam Exam: See Below Exam Limited By: No Limitations General Appearance: Alert, Moderate Distress, Thin, Other (malnourished) Throat/Mouth: Other (Dry mucous membranes) Head: Atraumatic, Normocephalic Neck: Normal Inspection, Supple, Non-Tender, Full Range of Motion Respiratory/Chest: No Respiratory Distress, Lungs Clear, Normal Breath Sounds, No Accessory Muscle Use, Chest Non-Tender, Decreased Breath Sounds Cardiovascular: Normal Peripheral Pulses, Regular Rate, Rhythm, No Edema, No Gallop, No JVD, No Murmur, No Rub GI/Abdominal: Normal Bowel Sounds, Soft, Tender (throughout), Other (GJ tube intact to LLQ) Back Exam: No: CVA Tenderness (L), CVA Tenderness (R) Extremities: Normal Inspection, Normal Range of Motion, Non-Tender, Normal Capillary Refill, No Pedal Edema Neurological: Alert, Oriented Psychiatric: Anxious Skin Exam: Warm, Dry, Intact Course - Vital Signs Last Recorded V/S: Last Vital Signs Temp 97.9 F 04/05/20 11:32 Pulse 82 04/05/20 11:32 Resp 18 04/05/20 11:32 BP 152/56 H 04/05/20 11:32 Pulse Ox 97 04/05/20 11:32 - Orders/Labs/Meds Orders: Medication Orders Albuterol/Ipratropium (Duoneb 3.0-0.5 Mg/3 Ml) 3 ml NEB QIDRT [facility] Aspirin (Aspirin) 81 mg PO DAILY [facility] Budesonide (Pulmicort) 0.5 mg INH BID [facility] Clopidogrel Bisulfate (Plavix) 75 mg PO DAILY [facility] Cyclobenzaprine HCl (Flexeril) 10 mg PO BEDTIME [facility] Hydromorphone HCl (Dilaudid) 1 mg IVPUSH Q2H PRN PRN Reason: Pain (severe 7-10) Last Admin: 04/05/20 14:23 Dose: 1 mg Documented by: BELIMIC Lactated Ringer's (Ringers, Lactated) 1,000 mls @ 75 mls/hr IV ASDIRECTED MISHA Last Admin: 04/05/20 14:26 Dose: 75 mls/hr Documented by: BELIMIC Metoprolol Tartrate (Lopressor) 25 mg PO BID [facility] Nicotine (Habitrol) 21 mg TRDERM DAILY [facility] Nitroglycerin (Nitrostat) 0.4 mg SL ASDIRECTED PRN PRN Reason: Chest Pain Non-Formulary Medication (Sacubitril/Valsartan [Entresto 97 Mg-103 Mg Tablet]) 1 each PO BID [facility] Ondansetron HCl (Zofran) 4 mg IV Q6H PRN PRN Reason: Nausea/Vomiting Oxycodone HCl (Oxycodone) 10 mg PO Q6H PRN PRN Reason: Abdominal Pain Pantoprazole Sodium (Protonix) 40 mg PO BID [facility] Simvastatin (Zocor) 80 mg PO DAILY [facility] Labs: Laboratory Tests 04/05/20 04/05/20 04/05/20 Range/Units 11:40 11:43 11:43 WBC 26.4 H* (5.0-10.0) 10^3/uL RBC 3.42 L (4.50-6.00) 10^6/uL Hgb 10.6 L (14.0-18.0) g/dL Hct 31.1 L (40.0-54.0) % MCV 90.9 (82.0-94.0) fL MCH 31.0 (27.0-32.0) pg MCHC 34.1 (33.0-38.0) g/dL RDW Coeff of Griselda 15.5 H (11.0-15.0) % Plt Count 518 H (150-400) 10^3/uL Add Manual Diff Yes Neutrophils % (Manual) 90 H (35-85) % Band Neutrophils % 2 (0-5) % Lymphocytes % (Manual) 4 L (21-55) % Monocytes % (Manual) 4 (2-12) % Sodium 135 L (136-145) mEq/L Potassium 4.6 (3.5-5.0) mEq/L Chloride 99 (98-106) mEq/L Carbon Dioxide 23 (21-32) mmol/L BUN 33 H (7-18) mg/dL Creatinine 1.2 (0.7-1.3) mg/dL Est Cr Clr Drug Dosing TNP Estimated GFR (MDRD) 60 (>=60) mL/min Glucose 131 H (75-99) mg/dL Calcium 9.4 (8.4-10.1) mg/dL Total Bilirubin 0.3 (0.0-1.0) mg/dL AST 31 (15-37) U/L ALT 32 (12-78) U/L Alkaline Phosphatase 132 H (46-116) U/L C-Reactive Protein 15.7 H (0.2-0.8) mg/dL Total Protein 7.9 (6.4-8.2) g/dL Albumin 2.8 L (3.4-5.0) g/dL Amylase 40 (25-115) U/L Lipase 30 L (73-393) U/L Urine Color Yellow (YELLOW) Urine Appearance Clear (CLEAR) Urine pH 5.0 (4.5-8.0) Ur Specific [place] >= 1.030 H (1.003-1.020) Urine Protein 30 H (NEGATIVE) mg/dL Urine Glucose (UA) Negative (NEGATIVE) mg/dL Urine Ketones Negative (NEGATIVE) mg/dL Urine Occult Blood Negative (NEGATIVE) Urine Nitrite Negative (NEGATIVE) Urine Bilirubin Negative (NEGATIVE) Urine Urobilinogen 0.2 (0.2-1.0) EU/dL Ur Leukocyte Esterase Negative (NEGATIVE) U Hyaline Cast (Auto) Few H (NOT SEEN) /LPF Urine RBC Not seen (0-5) /HPF Urine WBC Not seen (0-5) /HPF Ur Squamous Epith Cells Few H (NOT SEEN) /HPF Meds: Medications Generic Name Dose Route Start Last Admin Trade Name Freq PRN Reason Stop Dose Admin Albuterol/Ipratropium 3 ml 04/05/20 16:00 Duoneb 3.0-0.5 Mg/3 Ml NEB QIDRT [facility] Aspirin 81 mg 04/06/20 08:00 Aspirin PO DAILY [facility] Budesonide 0.5 mg 04/05/20 20:00 Pulmicort INH BID [facility] Clopidogrel Bisulfate 75 mg 04/06/20 08:00 Plavix PO DAILY [facility] Cyclobenzaprine HCl 10 mg 04/05/20 20:00 Flexeril PO BEDTIME MISHA Hydromorphone HCl 1 mg 04/05/20 12:55 04/05/20 14:23 Dilaudid IVPUSH 1 mg Q2H PRN Administration Pain (severe 7-10) Lactated Ringer's 1,000 mls @ 75 mls/hr 04/05/20 13:00 04/05/20 14:26 Ringers, Lactated IV 75 mls/hr ASDIRECTED [facility] Administration Metoprolol Tartrate 25 mg 04/05/20 20:00 Lopressor PO BID [facility] Nicotine 21 mg 04/06/20 08:00 Habitrol TRDERM DAILY [facility] Nitroglycerin 0.4 mg 04/05/20 13:01 Nitrostat SL ASDIRECTED PRN Chest Pain Non-Formulary Medication 1 each 04/05/20 20:00 Sacubitril/Valsartan [Entresto 97 Mg-103 Mg Tablet] PO BID [facility] Ondansetron HCl 4 mg 04/05/20 12:55 Zofran IV Q6H PRN Nausea/Vomiting Oxycodone HCl 10 mg 04/05/20 13:08 Oxycodone PO Q6H PRN Abdominal Pain Pantoprazole Sodium 40 mg 04/05/20 20:00 Protonix PO BID [facility] Simvastatin 80 mg 04/06/20 08:00 Zocor PO DAILY [facility] Discontinued Medications Generic Name Dose Route Start Last Admin Trade Name Freq PRN Reason Stop Dose Admin Hydromorphone HCl 1 mg 04/05/20 11:24 04/05/20 11:28 Dilaudid IVPUSH 04/05/20 11:25 1 mg ONETIME ONE Administration Hydromorphone HCl 1 mg 04/05/20 11:47 04/05/20 11:55 Dilaudid IVPUSH 04/05/20 11:48 1 mg ONETIME ONE Administration Lactated Ringer's 1,000 mls @ 125 mls/hr 04/05/20 13:00 Ringers, Lactated IV ASDIRECTED [facility] - Re-Assessments/Exams Free Text/Narrative Re-Assessment/Exam: 04/05/20 12:[address] [facility] regarding potential transfer. They report they are full and unable to accept patient. Discussed this with patient. Patient does not wish to go to a new facility. 04/05/20 12:45 Discussed patient case with Dr. Phipps. Patient does not wish for transfer if possible. Will admit to observation, attempt to hydrate patient and slow tube feeding rate to see if this improved abdominal pain. Again, patient had normal CT abdomen/pelvis yesterday, so will hold off at this time to see if pain improves with above measures. Patient verbalized understanding and was agreeable with this plan. Departure - Departure Time of Disposition: 13:12 Disposition: Refer to Observation Condition: Poor Clinical Impression: Abdominal pain Qualifiers: Abdominal location: generalized Qualified Code(s): R10.84 - Generalized abdominal pain Leukocytosis Qualifiers: Leukocytosis type: unspecified Qualified Code(s): D72.829 - Elevated white blood cell count, unspecified - Discharge Information *PRESCRIPTION DRUG MONITORING PROGRAM REVIEWED*: Not Applicable *COPY OF PRESCRIPTION DRUG MONITORING REPORT IN PATIENT VIVIANA: Not Applicable Sepsis Event Note (ED) - Evaluation Sepsis Screening Result: No Definite Risk - Focused Exam Vital Signs: Vital Signs Temp Pulse Resp BP Pulse Ox 04/05/20 11:32 97.9 F 82 18 152/56 H 97 - Problem List & Annotations (1) Abdominal pain SNOMED Code(s): 01741759 Code(s): R10.9 - UNSPECIFIED ABDOMINAL PAIN Status: Acute Priority: High Current Visit: Yes Qualifiers: Abdominal location: generalized Qualified Code(s): R10.84 - Generalized abdominal pain (2) Leukocytosis SNOMED Code(s): 439825972, 572097867 Code(s): D72.829 - ELEVATED WHITE BLOOD CELL COUNT, UNSPECIFIED Status: Acute Priority: High Current Visit: Yes Qualifiers: Leukocytosis type: unspecified Qualified Code(s): D72.829 - Elevated white blood cell count, unspecified (3) Malnourished SNOMED Code(s): 53013032 Code(s): E46 - UNSPECIFIED PROTEIN-CALORIE MALNUTRITION Status: Chronic Current Visit: Yes Qualifiers: Malnutrition type: protein-calorie malnutrition Protein-calorie malnutrition severity: severe Qualified Code(s): E43 - Unspecified severe protein-calorie malnutrition - Assessment/Plan Admission H&P: Please use this note as an admission H&P Assessment:: Abdominal Pain Leukocytosis Malnourished Plan: Labs reveal WBC increased from 19.6 to 26.4 today, as well as increased CRP from 3.3 [address] Had normal [address] abdomen/pelvis yesterday. He reportedly had been feeling fine throughout evening, but abdominal pain started again this morning. Feeding tube rate currently at 52 mLs/hr continuous. Does not have feedings going at time of ED presentation. They have been slowly trying to increase this. He reports he has not had any oral intake the last few days. Patient declines transfer as he is unable to return to [facility] as they are at capacity. He does not wish to go to a new facility. Discussed observation admit locally for IV hydration, pain management, and recheck labs. He is agreeable to this. Patient will be admitted observation status. Will initiate IV fluids. Will reduce continuous feeding tube rate to 45 mLs/hr. May need to reduce this more if patient unable to tolerate. Will continue home oxycodone, as well as IV Dilaudid for breakthrough pain. Will keep patient NPO until pain improves. Recheck labs in am. If pain persists, or does not seem to be improving, patient may need further imaging and transfer to higher level of care. Patient verbalizes understanding and is agreeable with this plan. Patient transferred to floor in stable condition. Pain was improved with IV dilaudid.
[2020-04-05 11:59] LABS: CHLORIDE,CL 99 mEq/L (98-106); SODIUM,NA 135 mEq/L (136-145)
[2020-04-05] MEDS ORDERED: Ondansetron 4 MG/2 ML SDV IV PRN (12:55)
[2020-04-05] MEDS ORDERED: Lactated Ringers 1,000 ML IV SCH ×2 (13:00)
[2020-04-05] MEDS ORDERED: Nitroglycerin 0.4 MG Tab.SL SL PRN (13:01)
[2020-04-05] MEDS ORDERED: oxyCODONE 5 MG Tab PO PRN (13:08)
[2020-04-05] MEDS: HYDROmorphone 1 MG/ML Syringe IVPUSH PRN ×3 (14:23→19:58)
[2020-04-05] MEDS: Albuterol/Ipratropium 3.0-0.5 MG/3 ML Neb Soln NEB SCH ×2 (17:30→20:31)
[2020-04-05 19:58] LABS: CHLORIDE,CL 100 mEq/L (98-106); SODIUM,NA 135 mEq/L (136-145)
[2020-04-05] MEDS ORDERED: Metoprolol Tartrate 25 MG Tab PO SCH (20:00)
[2020-04-05] MEDS ORDERED: Enoxaparin 30 MG/0.3 ML Syringe SUBCUT SCH (20:00)
[2020-04-05] MEDS ORDERED: Budesonide 0.5 MG/2 ML Neb Susp INH SCH (20:00)
[2020-04-05] MEDS ORDERED: Cyclobenzaprine 10 MG Tab PO SCH (20:00)
[2020-04-05] MEDS ORDERED: Non-Formulary Medication 1 Each (Sacubitril/Valsartan [Entresto 97 Mg-103 Mg Tablet] 1 EAC PO SCH (20:00)
[2020-04-05] MEDS ORDERED: Pantoprazole 40 MG Tab.CR PO SCH (20:00)
--- NOTE | 2020-04-05 21:01 | PCM.DCSUM1 ---
Discharge Summary - Hospital Course Free Text/Narrative:: Mark is a 69 year old complex chronic medical conditions who presented to the ER with complaints of severe abdominal pain/cramping. Was seen in ER yesterday with same complaints but pain improved after 3 hours. Labs done at that time showed a WBC of 19, CRP of 3.3. CT scan of abdomen was done which was read as no acute changes, CJ tube showed normal placement. This am, lab work did show increase in WBC of 26. CRP of 15. Had contacted [facility] but was deferring admissions at that time due to bed availability. Was admitted her for IV fluids. Patient was offered admission yesterday but declined. Admits did feel well after discharge from ED for several hours but this am the pain did return and was quite severe. Has been passing gas. Current feeding tube rate is 52 mls/hr. Has a drainage bag. Patient states "his stomach doesn't work so he needs the drainage bag and the feeding goes in to the jejunum". Patient was transferred to [facility] 2 weeks ago for same complaint. GJ tube at that time was malpositioned and was repositioned and his pain was improved. Patient states his pain level is chronically at a 7, today is a 15. No fevers, chills, chest pain or shortness of breath on admission. Now nauseated with vomiting this am. Has not been eating. Does have usual loose stools. Diagnosis: Stroke: No Modified Dileep Scale: No Symptoms at All Modified [place] Scale Score: 0 - Discharge Data Discharge Date: 04/05/20 Discharge Disposition: DC/Tfer to Acute Hospital 02 Condition: Fair - Referral to Home Health Primary Care Physician: Estela Castanon NP - Patient Summary/Data Complications: none Hospital Course: Patient has continued to complain of abdominal pain through the day, requiring Dilaudid. This evening, now complaining of pain at a 15 and has pain in his chest. EKG was done, shows NSR with nonspecific ST and T wave abnormality. Troponin and CK are normal. WBC redrawn this evening, has increased to 27.2, CRP has now doubled to 30. Abdomen is soft, is guarded with exam. Contacted Dr. Staley at [facility] in regards to patient status, pain level and labs. Did agree to accept the patient in transfer. Will send by ALS crew. - Patient Instructions Diet: NPO - Discharge Plan *PRESCRIPTION DRUG MONITORING PROGRAM REVIEWED*: Not Applicable *COPY OF PRESCRIPTION DRUG MONITORING REPORT IN PATIENT VIVIANA: Not Applicable Home Medications: Home Meds Albuterol/Ipratropium [DuoNeb 3.0-0.5 MG/3 ML] 1 ampule NEB QID 02/18/20 [History] Budesonide [Pulmicort] 0.5 mg INH BID 02/18/20 [History] Cyclobenzaprine [Flexeril] 10 mg PO BEDTIME 02/18/20 [History] Aspirin 81 mg PO DAILY 03/15/20 [History] Clopidogrel Bisulfate [Plavix] 75 mg PO DAILY 03/15/20 [History] Metoprolol Tartrate 25 mg PO BID 03/15/20 [History] Nicotine [Nicotine Patch] 21 mg TD DAILY 03/15/20 [History] Nitroglycerin [Nitrostat] 0.4 mg SL ASDIRECTED PRN 03/15/20 [History] Rosuvastatin Calcium 40 mg PO DAILY 03/15/20 [History] Sacubitril/Valsartan [Entresto 97 mg-103 mg Tablet] 1 each PO BID 03/15/20 [History] Hydrocodone/Acetaminophen [Hydrocodone-Acetamin 5-325 mg] 1 tab PO Q8H PRN 03/22/20 [History] Lansoprazole [Prevacid] 30 mg PO BID 03/22/20 [History] Forms: ED Department Discharge Referrals: Estela Castanon, [employer] [Primary Care Provider] - - Discharge Summary/Plan Comment DC Time >30 min.: Yes Discharge Summary/Plan Comment: Discharge orders 5 minutes Time with patient 10 minutes Time for consultation with Dr. Staley, 10 minutes Transfer papers and documentation 15 minutes - General Info Date of Service: 04/05/20 Admission Dx/Problem (Free Text: Abdominal Pain Functional Status: Denies: Pain Controlled, Tolerating Diet, Ambulating - Review of Systems General: Reports: Weakness, Fatigue, Malaise. Denies: Fever HEENT: Reports: No Symptoms Pulmonary: Denies: Shortness of Breath, Cough Cardiovascular: Denies: Chest Pain, Edema, Lightheadedness Gastrointestinal: Reports: Abdominal Pain, Diarrhea, Nausea, Vomiting Genitourinary: Reports: No Symptoms Musculoskeletal: Reports: No Symptoms Skin: Reports: No Symptoms Neurological: Reports: No Symptoms - Patient Data Vitals - Most Recent: Last Vital Signs Temp 98.1 F 04/05/20 20:00 Pulse 98 04/05/20 20:00 Resp 18 04/05/20 20:00 BP 177/83 H 04/05/20 20:00 Pulse Ox 94 L 04/05/20 20:00 Weight - Most Recent: 103 lb Lab Results - Last 24 hrs: Laboratory Results - last 24 hr 04/05/20 04/05/20 04/05/20 Range/Units 11:40 11:43 11:43 WBC 26.4 H* (5.0-10.0) 10^3/uL RBC 3.42 L (4.50-6.00) 10^6/uL Hgb 10.6 L (14.0-18.0) g/dL Hct 31.1 L (40.0-54.0) % MCV 90.9 (82.0-94.0) fL MCH 31.0 (27.0-32.0) pg MCHC 34.1 (33.0-38.0) g/dL RDW Coeff of Griselda 15.5 H (11.0-15.0) % Plt Count 518 H (150-400) 10^3/uL Add Manual Diff Yes Neutrophils % (Manual) 90 H (35-85) % Band Neutrophils % 2 (0-5) % Lymphocytes % (Manual) 4 L (21-55) % Monocytes % (Manual) 4 (2-12) % Eosinophils % (Manual) (0-5) % Basophils % (Manual) (0-3) % Sodium 135 L (136-145) mEq/L Potassium 4.6 (3.5-5.0) mEq/L Chloride 99 (98-106) mEq/L Carbon Dioxide 23 (21-32) mmol/L BUN 33 H (7-18) mg/dL Creatinine 1.2 (0.7-1.3) mg/dL Est Cr Clr Drug Dosing TNP Estimated GFR (MDRD) 60 (>=60) mL/min Glucose 131 H (75-99) mg/dL Calcium 9.4 (8.4-10.1) mg/dL Total Bilirubin 0.3 (0.0-1.0) mg/dL AST 31 (15-37) U/L ALT 32 (12-78) U/L Alkaline Phosphatase 132 H (46-116) U/L Creatine Kinase (35-232) U/L Troponin I (0.00-0.06) ng/mL C-Reactive Protein 15.7 H (0.2-0.8) mg/dL Total Protein 7.9 (6.4-8.2) g/dL Albumin 2.8 L (3.4-5.0) g/dL Amylase 40 (25-115) U/L Lipase 30 L (73-393) U/L Urine Color Yellow (YELLOW) Urine Appearance Clear (CLEAR) Urine pH 5.0 (4.5-8.0) Ur Specific Collins >= 1.030 H (1.003-1.020) Urine Protein 30 H (NEGATIVE) mg/dL Urine Glucose (UA) Negative (NEGATIVE) mg/dL Urine Ketones Negative (NEGATIVE) mg/dL Urine Occult Blood Negative (NEGATIVE) Urine Nitrite Negative (NEGATIVE) Urine Bilirubin Negative (NEGATIVE) Urine Urobilinogen 0.2 (0.2-1.0) EU/dL Ur Leukocyte Esterase Negative (NEGATIVE) U Hyaline Cast (Auto) Few H (NOT SEEN) /LPF Urine RBC Not seen (0-5) /HPF Urine WBC Not seen (0-5) /HPF Ur Squamous Epith Cells Few H (NOT SEEN) /HPF 04/05/20 04/05/20 04/05/20 Range/Units 19:30 19:30 19:30 WBC 27.1 H* (5.0-10.0) 10^3/uL RBC 3.55 L (4.50-6.00) 10^6/uL Hgb 11.0 L (14.0-18.0) g/dL Hct 32.2 L (40.0-54.0) % MCV 90.7 (82.0-94.0) fL MCH 31.0 (27.0-32.0) pg MCHC 34.2 (33.0-38.0) g/dL RDW Coeff of Griselda 15.6 H (11.0-15.0) % Plt Count 519 H (150-400) 10^3/uL Add Manual Diff Yes Neutrophils % (Manual) 90 H (35-85) % Band Neutrophils % 0 (0-5) % Lymphocytes % (Manual) 4 L (21-55) % Monocytes % (Manual) 6 (2-12) % Eosinophils % (Manual) 0 (0-5) % Basophils % (Manual) 0 (0-3) % Sodium 135 L (136-145) mEq/L Potassium 4.5 (3.5-5.0) mEq/L Chloride 100 (98-106) mEq/L Carbon Dioxide 25 (21-32) mmol/L BUN 31 H (7-18) mg/dL Creatinine 1.0 (0.7-1.3) mg/dL Est Cr Clr Drug Dosing 44.77 Estimated GFR (MDRD) > 60 (>=60) mL/min Glucose 115 H (75-99) mg/dL Calcium 9.4 (8.4-10.1) mg/dL Total Bilirubin (0.0-1.0) mg/dL AST (15-37) U/L ALT (12-78) U/L Alkaline Phosphatase (46-116) U/L Creatine Kinase 33 L (35-232) U/L Troponin I < 0.017 (0.00-0.06) ng/mL C-Reactive Protein 30.2 H (0.2-0.8) mg/dL Total Protein (6.4-8.2) g/dL Albumin (3.4-5.0) g/dL Amylase (25-115) U/L Lipase (73-393) U/L Urine Color (YELLOW) Urine Appearance (CLEAR) Urine pH (4.5-8.0) Ur Specific Collins (1.003-1.020) Urine Protein (NEGATIVE) mg/dL Urine Glucose (UA) (NEGATIVE) mg/dL Urine Ketones (NEGATIVE) mg/dL Urine Occult Blood (NEGATIVE) Urine Nitrite (NEGATIVE) Urine Bilirubin (NEGATIVE) Urine Urobilinogen (0.2-1.0) EU/dL Ur Leukocyte Esterase (NEGATIVE) U Hyaline Cast (Auto) (NOT SEEN) /LPF Urine RBC (0-5) /HPF Urine WBC (0-5) /HPF Ur Squamous Epith Cells (NOT SEEN) /HPF Med Orders - Current: Current Medications Albuterol/Ipratropium (Duoneb 3.0-0.5 Mg/3 Ml) 3 ml NEB QIDRT [facility] Last Admin: 04/05/20 20:31 Dose: 3 ml Documented by: Aspirin (Aspirin) 81 mg PO DAILY [facility] Budesonide (Pulmicort) 0.5 mg INH BID [facility] Last Admin: 04/05/20 20:31 Dose: 0.5 mg Documented by: Clopidogrel Bisulfate (Plavix) 75 mg PO DAILY [facility] Cyclobenzaprine HCl (Flexeril) 10 mg PO BEDTIME [facility] Enoxaparin Sodium (Lovenox) 30 mg SUBCUT Q24H [facility] Hydromorphone HCl (Dilaudid) 1 mg IVPUSH Q2H PRN PRN Reason: Pain (severe 7-10) Last Admin: 04/05/20 19:58 Dose: 1 mg Documented by: Lactated Ringer's (Ringers, Lactated) 1,000 mls @ 75 mls/hr IV ASDIRECTED [facility] Last Admin: 04/05/20 14:26 Dose: 75 mls/hr Documented by: Metoprolol Tartrate (Lopressor) 25 mg PO BID [facility] Nicotine (Habitrol) 21 mg TRDERM DAILY [facility] Nitroglycerin (Nitrostat) 0.4 mg SL ASDIRECTED PRN PRN Reason: Chest Pain Non-Formulary Medication (Sacubitril/Valsartan [Entresto 97 Mg-103 Mg Tablet]) 1 each PO BID [facility] Ondansetron HCl (Zofran) 4 mg IV Q6H PRN PRN Reason: Nausea/Vomiting Last Admin: 04/05/20 19:00 Dose: 4 mg Documented by: Oxycodone HCl (Oxycodone) 10 mg PO Q6H PRN PRN Reason: Abdominal Pain Pantoprazole Sodium (Protonix) 40 mg PO BID [facility] Simvastatin (Zocor) 80 mg PO DAILY [facility] Discontinued Medications Hydromorphone HCl (Dilaudid) 1 mg IVPUSH ONETIME ONE Stop: 04/05/20 11:25 Last Admin: 04/05/20 11:28 Dose: 1 mg Documented by: Hydromorphone HCl (Dilaudid) 1 mg IVPUSH ONETIME ONE Stop: 04/05/20 11:48 Last Admin: 04/05/20 11:55 Dose: 1 mg Documented by: Lactated Ringer's (Ringers, Lactated) 1,000 mls @ 125 mls/hr IV ASDIRECTED MISHA - Exam General: Reports: Alert, Oriented HEENT: Reports: Mucous Membr. Moist/[place] Neck: Reports: Supple Lungs: Reports: Clear to Auscultation, Normal Respiratory Effort Cardiovascular: Reports: Regular Rate, Regular Rhythm GI/Abdominal Exam: Normal Bowel Sounds, Soft, Tender Extremities: Normal Inspection, No Pedal Edema
[2020-04-06] MEDS ORDERED: Simvastatin 40 MG Tab PO SCH (08:00)
[2020-04-06] MEDS ORDERED: Nicotine 21 MG/24 Hr Patch TRDERM SCH (08:00)
[2020-04-06] MEDS ORDERED: Clopidogrel 75 MG Tab PO SCH (08:00)
[2020-04-06] MEDS ORDERED: Aspirin 81 MG Tab.Chew PO SCH (08:00)
== END 2020-04-05 21:13 ==
LOC: CC.ED 10:50 → INTOOBSV 12:55 → CC.MS 12:55 → UNDOADMIN 13:22 → CC.MS 13:22
PROVIDERS: ADMIT Nurse Practitioner Family; ATTEND Family Medicine
DX: R10.84 Generalized abdominal pain (principal); R07.9 Chest pain, unspecified; E43 Unspecified severe protein-calorie malnutrition; Z68.1 Body mass index [BMI] 19.9 or less, adult; D72.829 Elevated white blood cell count, unspecified; E78.00 Pure hypercholesterolemia, unspecified; M81.0 Age-related osteoporosis without current pathological fracture; M19.90 Unspecified osteoarthritis, unspecified site; M54.9 Dorsalgia, unspecified; G89.29 Other chronic pain; Z85.47 Personal history of malignant neoplasm of testis; Z79.82 Long term (current) use of aspirin; Z88.8 Allergy status to other drugs, medicaments and biological substances; Z79.899 Other long term (current) drug therapy; Z87.891 Personal history of nicotine dependence
CPT/HCPCS: 36415; 80048; 80053; 81001; 82150; 82550; 83690; 84484; 85025; 86140; 94640; 96374; 99236; 99285-25; J1170; J2405; J7120; J7620-GY